=== PATIENT | female | born 1970 | race Caucasian/White ===

== ENCOUNTER 2019-08-02 09:57 | Emergency (ER) | payer OTHER ==
[2019-08-02 10:10] VITALS: RESP 18; TEMP 98.1
[2019-08-02] MEDS ORDERED: SODIUM CHLORIDE 0.9% 1,000 ML IV STA ×2 (10:31)
[2019-08-02] MEDS ORDERED: KETOROLAC 30 MG/ML 1 ML VIAL IVP STA (10:31)
--- NOTE | 2019-08-02 10:36 | ED ---
Recheck HPI - General Chief Complaint: Recheck/Abnormal Lab/Rx Stated Complaint: poss kidney infection Time Seen by Provider: 08/02/19 10:12 Source: patient, RN notes reviewed, old records reviewed Mode of arrival: ambulatory Limitations: no limitations - History of Present Illness Initial Comments: This Patient is a 49-year-old female who presents the emergency department today for evaluation for concern for flank pain, some shortness of breath, and likely resistant urinary tract infection. Patient reports that on 07/26 she started having lower back pain urine [place] PCP started her on Bactrim, take for possible UTI. Patient reported that she is continued to have symptoms and followed up with her primary care doctor again on 07/29. Patient was then started on Patient went to urgent care on 07/29 for recheck complaining of concern for a rash and shortness of breath. Patient still that time had a evidence of urinary tract infection and was told that she is likely resistant to Cipro. However Patient was advised to continue Cipro and also placed on Macrobid by urgent care Dr. Dumont would. Patient did have urine culture completed at that time. Patient reports that she called her PCP today and was told to come to the ER for recheck is not she is complaining of a rash and general aches and pains and some complaints of shortness of breath. Patient states that she has had no recorded fevers at this time. She still complained of some lower back pain. She mainly has tenderness over her right flank. Denies any history of kidney stones. She does report she's was hospitalized for 5 days with a kidney infection and 1992. - Related Data Home Medications Medication Instructions Recorded Confirmed Multivitamins, Thera [Theragran] 1 each PO DAILY 02/20/15 02/23/15 Previous Rx's Medication Instructions Recorded Ondansetron Odt [Zofran ODT] 4 mg PO Q8HR PRN #15 tab 02/23/15 Hydrocortisone Cream 1 applic TOPICAL BID #60 gm 08/02/19 [Hydrocortisone 1% Cream] diphenhydrAMINE [Benadryl] 25 mg PO BID PRN #30 capsule 08/02/19 Allergies Allergy/AdvReac Type Severity Reaction Status Date / Time Penicillins Allergy Anaphylaxis Verified 08/02/19 10:00 Review of Systems ROS Statement: Those systems with pertinent positive or pertinent negative responses have been documented in the HPI. ROS Other: All systems not noted in ROS Statement are negative. Past Medical History Past Medical History: No Reported History History of Any Multi-Drug Resistant Organisms: None Reported Past Surgical History: Section Past Psychological History: No Psychological Hx Reported Smoking Status: Never smoker Past Alcohol Use History: Occasional Past Drug Use History: None Reported General Exam - General Exam Comments Initial Comments: Alert and oriented 49-year-old female. No distress. Limitations: no limitations General appearance: alert, in no apparent distress Head exam: Present: atraumatic, normocephalic, normal inspection Eye exam: Present: normal appearance, PERRL, EOMI. Absent: scleral icterus, conjunctival injection, periorbital swelling ENT exam: Present: normal exam, mucous membranes moist Neck exam: Present: normal inspection Respiratory exam: Present: normal lung sounds bilaterally. Absent: respiratory distress, wheezes, rales, rhonchi, stridor Cardiovascular Exam: Present: regular rate, normal rhythm, normal heart sounds. Absent: systolic murmur, diastolic murmur, rubs, gallop, clicks GI/Abdominal exam: Present: soft, normal bowel sounds. Absent: distended, tenderness, guarding, rebound, rigid Extremities exam: Present: normal inspection, full ROM, normal capillary refill. Absent: tenderness, pedal edema, joint swelling, calf tenderness Back exam: Present: normal inspection, CVA tenderness (R) (Patient has right CVA tenderness.) Neurological exam: Present: alert, oriented X3, CN II-XII intact Psychiatric exam: Present: normal affect, normal mood Skin exam: Present: warm, dry, intact, normal color, rash (Small areas of erythematous papules over the neck and thighs.) Course Vital Signs 08/02/19 08/02/19 10:00 14:31 Temperature 98.1 F 98.1 F Pulse Rate 87 83 Respiratory 18 18 Rate Blood Pressure 138/85 122/84 O2 Sat by Pulse 98 97 Oximetry Medical Decision Making - Medical Decision Making This Patient is a 49-year-old female with multiple complaints complaining of concern for kidney infection with history of resistant and UTIs with multiple antibiotics within the past week. She also complains of erythematous papular- like rash and sporadic spots over her neck and leg. They do not appear to be hives. They're here March the small areas of folliculitis or dermatitis. Discussed that this be treated with topical steroid cream. Patient's lab work today shows no acute changes. No significant sign of urinary tract infection. Patient hasn't complained of shortness of breath. EKG chest x-ray was completed is negative. Due to patient's persistent back discomfort and also complains of shortness of breath and we did do a CT CANTRELL for PE and CT abdomen and pelvis. Both of these studies were negative for any acute process. Discussed over extensive workup nothing significant for patient's multiple symptoms. Discusses only using steroid cream and to finish her antibiotic Macrobid at this. Discussed return parameters. - Lab Data Result diagrams: 08/02/19 10:58 08/02/19 10:58 Lab Results 08/02/19 08/02/19 08/02/19 Range/Units 10:41 10:58 10:58 WBC 4.5 (3.8-10.6) k/uL RBC 4.44 (3.80-5.40) m/uL Hgb 11.8 (11.4-16.0) gm/dL Hct 37.3 (34.0-46.0) % MCV 84.1 (80.0-100.0) fL MCH 26.6 (25.0-35.0) pg MCHC 31.7 (31.0-37.0) g/dL RDW 13.0 (11.5-15.5) % Plt Count 272 (150-450) k/uL Neutrophils % 67 % Lymphocytes % 23 % Monocytes % 5 % Eosinophils % 3 % Basophils % 1 % Neutrophils # 3.0 (1.3-7.7) k/uL Lymphocytes # 1.1 (1.0-4.8) k/uL Monocytes # 0.2 (0-1.0) k/uL Eosinophils # 0.1 (0-0.7) k/uL Basophils # 0.0 (0-0.2) k/uL PT (9.0-12.0) sec INR (<1.2) APTT (22.0-30.0) sec Sodium 138 (137-145) mmol/L Potassium 3.4 L (3.5-5.1) mmol/L Chloride 102 (98-107) mmol/L Carbon Dioxide 29 (22-30) mmol/L Anion Gap 7 mmol/L BUN 12 (7-17) mg/dL Creatinine 0.66 (0.52-1.04) mg/dL Est GFR (CKD-EPI)AfAm >90 (>60 ml/min/1.73 sqM) Est GFR (CKD-EPI)NonAf >90 (>60 ml/min/1.73 sqM) Glucose 91 (74-99) mg/dL Plasma Lactic Acid Stepan (0.7-2.0) mmol/L Calcium 8.4 (8.4-10.2) mg/dL Total Bilirubin 0.5 (0.2-1.3) mg/dL AST 22 (14-36) U/L ALT 20 (4-34) U/L Alkaline Phosphatase 67 (38-126) U/L Troponin I (0.000-0.034) ng/mL Total Protein 6.4 (6.3-8.2) g/dL Albumin 3.4 L (3.5-5.0) g/dL Amylase 31 (30-110) U/L Lipase 54 (23-300) U/L Urine Color Yellow Urine Appearance Clear (Clear) Urine pH 6.5 (5.0-8.0) Ur Specific Stephen 1.009 (1.001-1.035) Urine Protein Negative (Negative) Urine Glucose (UA) Negative (Negative) Urine Ketones Negative (Negative) Urine Blood Small H (Negative) Urine Nitrite Negative (Negative) Urine Bilirubin Negative (Negative) Urine Urobilinogen <2.0 (<2.0) mg/dL Ur Leukocyte Esterase Negative (Negative) Urine RBC 1 (0-5) /hpf Urine WBC 5 (0-5) /hpf Ur Squamous Epith Cells 4 (0-4) /hpf Urine Bacteria Moderate H (None) /hpf Urine Mucus Rare H (None) /hpf 08/02/19 08/02/19 08/02/19 Range/Units 10:58 10:58 10:58 WBC (3.8-10.6) k/uL RBC (3.80-5.40) m/uL Hgb (11.4-16.0) gm/dL Hct (34.0-46.0) % MCV (80.0-100.0) fL MCH (25.0-35.0) pg MCHC (31.0-37.0) g/dL RDW (11.5-15.5) % Plt Count (150-450) k/uL Neutrophils % % Lymphocytes % % Monocytes % % Eosinophils % % Basophils % % Neutrophils # (1.3-7.7) k/uL Lymphocytes # (1.0-4.8) k/uL Monocytes # (0-1.0) k/uL Eosinophils # (0-0.7) k/uL Basophils # (0-0.2) k/uL PT 9.4 (9.0-12.0) sec INR 0.9 (<1.2) APTT 24.5 (22.0-30.0) sec Sodium (137-145) mmol/L Potassium (3.5-5.1) mmol/L Chloride (98-107) mmol/L Carbon Dioxide (22-30) mmol/L Anion Gap mmol/L BUN (7-17) mg/dL Creatinine (0.52-1.04) mg/dL Est GFR (CKD-EPI)AfAm (>60 ml/min/1.73 sqM) Est GFR (CKD-EPI)NonAf (>60 ml/min/1.73 sqM) Glucose (74-99) mg/dL Plasma Lactic Acid Stepan 1.0 (0.7-2.0) mmol/L Calcium (8.4-10.2) mg/dL Total Bilirubin (0.2-1.3) mg/dL AST (14-36) U/L ALT (4-34) U/L Alkaline Phosphatase (38-126) U/L Troponin I <0.012 (0.000-0.034) ng/mL Total Protein (6.3-8.2) g/dL Albumin (3.5-5.0) g/dL Amylase (30-110) U/L Lipase (23-300) U/L Urine Color Urine Appearance (Clear) Urine pH (5.0-8.0) Ur Specific Stephen (1.001-1.035) Urine Protein (Negative) Urine Glucose (UA) (Negative) Urine Ketones (Negative) Urine Blood (Negative) Urine Nitrite (Negative) Urine Bilirubin (Negative) Urine Urobilinogen (<2.0) mg/dL Ur Leukocyte Esterase (Negative) Urine RBC (0-5) /hpf Urine WBC (0-5) /hpf Ur Squamous Epith Cells (0-4) /hpf Urine Bacteria (None) /hpf Urine Mucus (None) /hpf 08/02/19 14:57 EKG performed at 143, normal EKG. Ventricular 65 bpm. Interval is 128 ms. QT QTc is 410/426 no seconds. QRS duration is 80 ms. - Radiology Data Radiology results: report reviewed CT abdomen shows no evidence of any acute intra-abdominal process. A small left ovarian cyst identified. CT angios negative for PE. KUB shows normal bowel gas pattern. Disposition Clinical Impression: Rash, Back pain, History of UTI Disposition: HOME SELF-CARE Condition: Good Instructions (If sedation given, give patient instructions): Urinary Tract Infection in Women (DC), Acute Rash (ED) Additional Instructions: Recommended taking anti-inflammatory medicine such as Motrin Tylenol. He can al so use hydrocortisone cream over the areas of rash. Recommended following up with her primary care physician. Finish the antibiotic Macrobid. Return to the emergency department if any alarming signs or symptoms occur. Prescriptions: diphenhydrAMINE [Benadryl] 25 mg PO BID PRN #30 capsule PRN Reason: Itching Hydrocortisone Cream [Hydrocortisone 1% Cream] 1 applic TOPICAL BID #60 gm Is patient prescribed a controlled substance at d/c from ED?: No Referrals: Timo Schreiber MD [Primary Care Provider] - 1-2 days Time of Disposition: 14:08
[2019-08-02 11:10] LABS: Basophils % (A) 1 %; Eosinophils # (A) 0.1 k/uL (0-0.7); Eosinophils % (A) 3 %; HCT 37.3 % (34.0-46.0); HGB 11.8 gm/dL (11.4-16.0); Lymphocytes # (A) 1.1 k/uL (1.0-4.8); Lymphocytes % (A) 23 %; MCH 26.6 pg (25.0-35.0); MCHC 31.7 g/dL (31.0-37.0); MCV 84.1 fL (80.0-100.0); Mean Platelet Volume 6.7; Monocytes # (A) 0.2 k/uL (0-1.0); Monocytes % (A) 5 %; Neutrophils % (A) 67 %; Platelet Count 272 k/uL (150-450); RBC 4.44 m/uL (3.80-5.40); WBC 4.5 k/uL (3.8-10.6)
[2019-08-02 11:20] LABS: INR 0.9 (<1.2); Partial Thromboplastin Time 24.5 sec (22.0-30.0); Prothrombin Time 9.4 sec (9.0-12.0)
[2019-08-02 11:21] LABS: ALT 20 U/L (4-34); AST 22 U/L (14-36); African American GFR (CKD) >90 (>60 ml/min/1.73 sqM); Albumin 3.4 g/dL (3.5-5.0); Alkaline Phosphatase 67 U/L (38-126); Amylase 31 U/L (30-110); Anion Gap 7 mmol/L; Blood Urea Nitrogen 12 mg/dL (7-17); Calcium 8.4 mg/dL (8.4-10.2); Carbon Dioxide 29 mmol/L (22-30); Chloride 102 mmol/L (98-107); Glucose 91 mg/dL (74-99); Non-African American GFR(CKD) >90 (>60 ml/min/1.73 sqM); Potassium 3.4 mmol/L (3.5-5.1); Sodium 138 mmol/L (137-145); Total Bilirubin 0.5 mg/dL (0.2-1.3); Total Protein 6.4 g/dL (6.3-8.2)
--- NOTE | 2019-08-02 11:34 | XR ---
EXAMINATION TYPE: XR chest 2V DATE OF EXAM: 08/02/2019 COMPARISON: 01/23/2015 HISTORY: Back pain. Recent urinary tract infection. Chest pain. TECHNIQUE: Frontal and lateral views of the chest are obtained. FINDINGS: There is no focal air space opacity, pleural effusion, or pneumothorax seen. The cardiac silhouette size is within normal limits. The osseous structures are intact. IMPRESSION: No acute cardiopulmonary process.
--- NOTE | 2019-08-02 11:37 | XR ---
EXAMINATION TYPE: XR KUB DATE OF EXAM: 08/02/2019 11:26 AM CLINICAL HISTORY: Abdominal pain TECHNIQUE: Single supine KUB image of the abdomen is obtained. COMPARISON: None. FINDINGS: No dilated large or small bowel is seen. There is a minimal levoscoliosis of the lumbar spi ne may be positional. Osseous structures appear grossly intact. Lung bases are well aerated. No suspi cious calcifications in the abdomen or pelvis. IMPRESSION: Nonobstructive bowel gas pattern.
[2019-08-02 11:49] LABS: Appearance,Urine Clear (Clear); Bacteria,Urine Moderate /hpf; Bilirubin,Urine Negative (Negative); Blood,Urine Small (Negative); Color,Urine Yellow; Glucose,Urine (UA) Negative (Negative); Ketones,Urine Negative (Negative); Leukocyte Esterase,Urine Negative (Negative); Mucus,Urine Rare /hpf; Nitrite,Urine Negative (Negative); PH, Urine 6.5 (5.0-8.0); Protein,Urine Negative (Negative); RBC,Urine 1 /hpf (0-5); Specific Gravity,Urine 1.009 (1.001-1.035); Squamous Epithelial Cell,Urine 4 /hpf (0-4); Urobilinogen,Urine <2.0 mg/dL (<2.0); WBC,Urine 5 /hpf (0-5)
--- NOTE | 2019-08-02 13:51 | CT ---
EXAMINATION TYPE: CT chest angio for PE DATE OF EXAM: 08/02/2019 COMPARISON: none HISTORY: SOB, low back pain CT DLP: 290.2 mGycm CONTRAST: CT chest with contrast and 3D reconstruction with MIP imaging is performed with IV Contrast, patient injected with 100 mL of Isovue 370. Contrast-enhanced CT of the chest was performed through the course of the pulmonary arteries with nilda g and mediastinal window settings submitted. 3D reconstruction with MIP imaging was also performed. PULMONARY ARTERIES: The pulmonary arteries and their major tributaries are patent. I do not see guillermo dence for sizable filling defect to suggest pulmonary embolic process. LUNGS: The lungs are clear and free of infiltrate. No evidence for atelectasis. No pulmonary nodule or mass is detected. No pleural effusion. MEDIASTINUM: Thoracic aorta is of normal caliber,however, evaluation is limited given timing of the contrast bolus. If there is concern for thoracic aortic pathology consider BAILEY. Correlate clinicall y . The heart is not enlarged. No evidence for mediastinal mass. No mediastinal lymph nodes greater than 1cm. HILAR STRUCTURES: No evidence for mass. No hilar lymph nodes greater than 1 cm. UPPER ABDOMEN: No significant abnormality is seen. IMPRESSION: 1. No evidence for Pulmonary embolism at this time.
--- NOTE | 2019-08-02 13:56 | CT ---
EXAMINATION TYPE: CT abdomen pelvis w con DATE OF EXAM: 08/02/2019 COMPARISON: None HISTORY: SOB, low back pain CT DLP: 757.7 mGycm CONTRAST: CT scan of the abdomen and pelvis is performed without Oral Contrast and with IV Contrast, patient in jected with 100 mL of Isovue 370. FINDINGS: LUNG BASES-: No visible nodule. No infiltrate. LIVER/GB: No calcified gallstones. No space occupying hepatic lesion. Biliary tree is of normal ca liber. PANCREAS: No inflammation. No distinct mass. SPLEEN: No splenic enlargement. No lesion seen. ADRENALS: No nodule. No thickening. KIDNEYS/BLADDER: No hydronephrosis. No nephrolithiasis. 1.8 cm simple cyst midpole left kidney. No solid renal lesions detected. Urinary bladder grossly unremarkable. BOWEL: Normal appendix. Normal bowel caliber. No inflammation. GENITAL ORGANS: Trace free fluid is seen within the pelvis. Left ovarian cyst measuring 1.7 cm. Right ovary is unremarkable. Uterus is free of mass lesion. LYMPH NODES: No greater than 1cm abdominal or pelvic lymph nodes are appreciated. AORTA: No significant abnormality. OSSEOUS STRUCTURES: No significant abnormality is seen. OTHER: No significant additional abnormality is seen. IMPRESSION: 1. No evidence for acute intra-abdominal process. Left ovarian cyst as noted.
[2019-08-02 14:33] VITALS: BP 122/84; PULSE 83
== END 2019-08-02 14:31 | disposition home or self-care (01) ==
LOC: EC 09:57
DX: M54.5 Low back pain (principal); R21 Rash and other nonspecific skin eruption; R06.02 Shortness of breath; R35.0 Frequency of micturition; R10.9 Unspecified abdominal pain; Z88.0 Allergy status to penicillin; Z87.440 Personal history of urinary (tract) infections
CPT/HCPCS: 99285; 96374; 96361 ×3; 36415; 93005; 80053; 82150; 83605; 83690; 84484; 85025; 85610; 85730; 81001; 87040; 71046; 74018; 71275; 74177; J1885; Q9967